=== PATIENT | female | born 1970 | race Caucasian/White ===

== ENCOUNTER 2020-01-30 00:33 | Outpatient (CLI) | payer OTHER, SELFPAY ==
[2020-01-30 18:59] LABS: SARS-CoV-2 RNA PCR Negative
== END 2020-01-30 00:34 | disposition home or self-care (01) ==
LOC: ANHCOVIDDT 00:33
PROVIDERS: PCP Family Medicine; Visit Provider Internal Medicine Gastroenterology
DX: Z01.812 Encounter for preprocedural laboratory examination (principal); Z20.828 Contact with and (suspected) exposure to other viral communicable diseases
CPT/HCPCS: 87635; C9803; U0003

== ENCOUNTER 2020-02-02 01:26 | Day surgery (SDC) | payer OTHER, SELFPAY ==
[2020-01-26 14:56] VITALS: BMI 25.0
[2020-02-02 09:26] VITALS: BP 198/105; PULSE 92; RESP 20; TEMP 37.6; O2SAT 100; BMI 25.3
[2020-02-02] MEDS: LACTATED RINGERS 1,000 ML 150 ML IV CONT (09:51)
--- NOTE | 2020-02-02 10:12 | WPDANESEPPF ---
Anes - Initial Pre Proc Eval Procedure: Operation Date: 02/02/20 10:30 Proposed Procedures p Esophagogastroduodenoscopy&Screening Colon - Cosme Balderrama MD Date/Time: 02/02/20 10:12 Surgeon: Cosme Balderrama MD Pre Op Diagnosis: Neoplasm Screening, Epigastric Pain Patient Data Age: 49 Gender: F Height: 5 ft Weight: 58.8 kg Last Vital Signs Temp 99.6 F 02/02/20 09:26 Pulse 92 02/02/20 09:26 Resp 20 02/02/20 09:26 BP 198/105 H 02/02/20 09:26 Pulse Ox 100 02/02/20 09:26 Allergies Allergy/AdvReac Type Severity Reaction Status Date / Time Penicillins Allergy Intermediate HIVES Verified 02/02/20 09:18 Home Medications Medication Instructions Recorded Confirmed Type bupropion HCl 150 mg PO DAILY 02/17/19 02/02/20 History cetirizine [Zyrtec] 10 mg PO PRN 02/17/19 02/02/20 History citalopram 40 mg PO DAILY 02/17/19 02/02/20 History famotidine [Pepcid] 20 mg PO DAILY 02/17/19 02/02/20 History metoprolol succinate 50 mg PO DAILY 02/17/19 02/02/20 History norethin-e.estradiol triphasic 1 tablet PO DAILY 02/17/19 02/02/20 History [Ortho-[facility] (28)] Patient hx anesthesia problems: none Family hx anesthesia problems: none PMFSH Past Medical History Medical History (Updated 01/04/20 @ 15:08 by Cosme Balderrama MD) Anxiety Colon cancer screening Depression Epigastric pain GERD (gastroesophageal reflux disease) Hypertension Surgical History Surgical History (Updated 01/04/20 @ 15:08 by Cosme Balderrama MD) H/O laparoscopy Hernia of abdominal wall as infant History of sleeve gastrectomy Social History Social History Smoking status: Never smoker Living arrangements: with family Gender identity (if verbalized by the patient): Female Spiritual care concerns: No Anes - Eval Final PreProcedure Day of Procedure 02/02/20 10:12 Patient weight: normal Heart: regular rate and rhythm Lungs: clear to auscultation Airway: Mallampati scale class II Neurological: alert and oriented Last oral intake: >/= 8 hours ASA classification: II Emergent: no Anesthetic plan: proceed Anesthesia type and monitoring: general GIVS and standard monitoring Informed Consent: The patient's anesthetic plan and its attendant risks and benefits were discussed with the patient/family/POA. Questions were solicited and answers provided to the satisfaction of the patient/family/POA.
--- NOTE | 2020-02-02 10:12 | WPDHPUPDATE1 ---
History and Physical Update Update Date/Time: 02/02/20 10:12 History and Physical has been reviewed, including an updated exam of the patient. There are NO changes in the patient's condition. Risks, benefits, and alternatives have been discussed and questions answered. Patient agrees to proceed with procedure.
[2020-02-02 10:55] VITALS: BP 109/67; PULSE 61; RESP 18; O2SAT 100
[2020-02-02 11:05] VITALS: BP 115/68; PULSE 70; RESP 16; O2SAT 100
[2020-02-02 11:15] VITALS: BP 150/91; PULSE 75; RESP 16; O2SAT 100
== END 2020-02-02 11:21 | disposition home or self-care (01) ==
PROVIDERS: PCP Family Medicine; Visit Provider Internal Medicine Gastroenterology
PROC: 0DJ08ZZ Inspection of Upper Intestinal Tract, Via Natural or Artificial Opening Endoscopic (ICD-10-PCS; CPT 43235; principal; 2020-02-02 10:30)
DX: Z12.11 Encounter for screening for malignant neoplasm of colon (principal); K63.5 Polyp of colon; K64.8 Other hemorrhoids; K29.50 Unspecified chronic gastritis without bleeding; K21.00 Gastro-esophageal reflux disease with esophagitis, without bleeding; K44.9 Diaphragmatic hernia without obstruction or gangrene; I10 Essential (primary) hypertension; F41.8 Other specified anxiety disorders
CPT/HCPCS: 45380; 43239; 88305; 88312; J2704; J7120

== ENCOUNTER 2020-02-11 08:20 | Outpatient (CLI) | payer OTHER, SELFPAY ==
[2020-02-11 09:01] LABS: Basophils Absolute Auto 0.1 K/mm3 (0.0-0.1); Basophils Percent Auto 0.7 % (0.2-1.2); Eosinophils Absolute Auto 0.1 K/mm3 (0-0.3); Eosinophils Percent Auto 1.9 % (0-4.4); Hemoglobin 13.7 g/dL (12.0-15.0); Immature Granulocyte Absolute 0.01 K/mm3 (0.00-0.031); Immature Granulocyte Percent A 0.1 % (0-0.5); Lymphocytes Absolute Auto 1.94 K/mm3 (0.9-3.2); Mean Corpuscular HGB Conc 33.4 g/dl (32-36); Mean Corpuscular Volume 89.9 fl (80-100); Mean Platelet Volume 9.7 fl (7.4-10.4); Monocytes Absolute Auto 0.3 K/mm3 (0.1-0.6); Monocytes Percent Auto 4.2 % (2.6-8.5); Neutrophils Absolute Auto 4.5 K/mm3 (1.3-6.7); Neutrophils Percent Auto 65.1 % (45.5-73.1); Platelet Count Result 324 k/mm3 (150-375); Red Blood Count 4.56 M/mm3 (4.2-5.4); Red Cell Distribution Width 12.2 % (11.5-14.5); White Blood Count 6.9 K/mm3 (4.5-10.0)
[2020-02-11 11:46] LABS: Alanine Aminotransferase 12 U/L (4-35); Albumin Level 3.8 g/dL (3.5-5.1); Alkaline Phosphatase 56 U/L (38-126); Anion Gap 5 mmol/L (8-16); Aspartate Amino Transferase 20 U/L (14-36); Bilirubin,Total 0.6 mg/dL (0.2-1.3); Blood Urea Nitrogen 15 mg/dL (7-17); Calcium 9.6 mg/dL (8.4-10.2); Carbon Dioxide 31 mmol/L (22-30); Chloride 104 mmol/L (98-107); Estimated Glomerular Filt Rate > 60; Glucose 78 mg/dL (65-105); Potassium 4.1 mmol/L (3.4-5.0); Sodium 140 mmol/L (137-145)
[2020-02-11 12:35] LABS: Vitamin B12 > 1000.0 pg/mL (239-931)
== END 2020-02-11 08:21 | disposition home or self-care (01) ==
PROVIDERS: PCP Family Medicine; Visit Provider Internal Medicine Hematology & Oncology
DX: I10 Essential (primary) hypertension (principal); Z98.84 Bariatric surgery status
CPT/HCPCS: 36415; 80053; 82607; 84443; 85025

== ENCOUNTER 2020-05-17 15:16 | Outpatient (CLI) | payer OTHER, SELFPAY ==
[2020-05-17 15:47] LABS: Hematocrit 41.7 % (37.0-47.0); Hemoglobin 13.6 g/dL (12.0-15.0); Mean Corpuscular HGB Conc 32.6 g/dl (32-36); Mean Corpuscular Volume 92.1 fl (80-100); Platelet Count Result 299 k/mm3 (150-375); Red Blood Count 4.53 M/mm3 (4.2-5.4); Red Cell Distribution Width 12.5 % (11.5-14.5); White Blood Count 8.2 K/mm3 (4.5-10.0)
[2020-05-17 16:56] LABS: Free T4 Free Thyroxine 0.88 ng/mL (0.78-2.19); Vitamin D 25 Hydroxy 26.6 ng/mL
== END 2020-05-17 15:17 | disposition home or self-care (01) ==
LOC: ANHLAB 15:18
PROVIDERS: Family Provider Family Medicine; PCP Family Medicine; Visit Provider Nurse Practitioner
DX: E55.9 Vitamin D deficiency, unspecified (principal); R53.83 Other fatigue
CPT/HCPCS: 36415; 82306; 82607; 84439; 84443; 85027

== ENCOUNTER 2020-12-15 14:36 | Outpatient (CLI) | payer OTHER, SELFPAY ==
[2020-12-15 23:38] LABS: Vitamin D 25 Hydroxy 39.9 ng/mL
== END 2020-12-15 14:37 | disposition home or self-care (01) ==
PROVIDERS: PCP Family Medicine; Visit Provider Internal Medicine Hematology & Oncology
DX: E55.9 Vitamin D deficiency, unspecified (principal)
CPT/HCPCS: 36415; 82306; 82607

== ENCOUNTER 2021-01-18 16:40 | Outpatient (CLI) | payer OTHER, SELFPAY ==
--- NOTE | ~2021-01-18 | MM_ITS ---
EXAMINATION: MM screening elaina BI w jagruti HISTORY: Screening TECHNIQUE: Craniocaudal and mediolateral oblique 3-D tomosynthesis images were obtained and synthetic 2-D images were generated. CAD analysis was submitted and interpreted. COMPARISON: Comparison to multiple prior studies sequentially, with oldest reviewed study dated 11/04. BREAST PARENCHYMAL COMPOSITION: The breasts are heterogenously dense, which may obscure small masses FINDINGS: There is no evidence of suspicious mass, calcification, or architectural distortion to sugg est malignancy in either breast. There has been no suspicious interval change. IMPRESSION: 1. No mammographic evidence of malignancy. 2. Recommend routine screening mammography in one year. BI-RADS Category 1: Negative Reviewed, dictated and finalized at location A.
== END 2021-01-18 16:41 | disposition home or self-care (01) ==
LOC: ANHIMG 16:41
PROVIDERS: PCP Family Medicine; Visit Provider Obstetrics & Gynecology Gynecology
DX: Z12.31 Encounter for screening mammogram for malignant neoplasm of breast (principal)
CPT/HCPCS: 77063; 77067

== ENCOUNTER 2021-02-02 10:47 | Outpatient (CLI) | payer OTHER, SELFPAY | END 2021-02-02 10:48 | disposition home or self-care (01) | LOC: ANHLAB 10:51 | PROVIDERS: PCP Family Medicine; Visit Provider Obstetrics & Gynecology Gynecology | DX: E53.8 Deficiency of other specified B group vitamins (principal) | CPT/HCPCS: 36415; 82607 ==

== ENCOUNTER 2021-04-06 13:23 | Outpatient (CLI) | payer OTHER, SELFPAY | END 2021-04-06 13:24 | disposition home or self-care (01) | PROVIDERS: PCP Family Medicine; Visit Provider Nurse Practitioner | DX: E53.8 Deficiency of other specified B group vitamins (principal) | CPT/HCPCS: 36415; 82607 ==

== ENCOUNTER 2021-06-27 14:40 | Outpatient (CLI) | payer OTHER, SELFPAY | END 2021-06-27 14:41 | disposition home or self-care (01) | LOC: ANHLAB 14:42 | PROVIDERS: Obstetrics & Gynecology Gynecology; PCP Family Medicine; Visit Provider Internal Medicine Hematology & Oncology | DX: E53.8 Deficiency of other specified B group vitamins (principal) | CPT/HCPCS: 36415; 82607 ==

== ENCOUNTER 2021-08-23 13:33 | Outpatient (CLI) | payer OTHER, SELFPAY | END 2021-08-23 13:34 | disposition home or self-care (01) | LOC: ANHLAB 13:35 | PROVIDERS: PCP Family Medicine | DX: E53.8 Deficiency of other specified B group vitamins (principal) | CPT/HCPCS: 36415; 82607 ==

== ENCOUNTER 2021-10-02 15:51 | Emergency (ER) | payer OTHER, SELFPAY ==
--- NOTE | ~2021-10-02 | XR_ITS ---
EXAMINATION: XR hand LT min 3V DATE: 10/02/2021 16:08 INDICATION: Left hand injury. TECHNIQUE: 3 views of left hand were obtained. COMPARISON: None. FINDINGS: Bone alignment is normal. No fracture. There is mild osteoarthritis of first carpometacarpa l joint, second metacarpophalangeal joint, and second distal interphalangeal joint. IMPRESSION: 1. Mild polyarticular osteoarthritis. Reviewed, dictated and finalized at location B.
--- NOTE | 2021-10-02 15:53 | ED.UPPEXIN ---
HPI - Extremity Injury (Upper) General Stated Complaint: lt hand injury Time Seen by Provider: 10/02/21 15:53 Source: patient Mode of arrival: ambulatory Limitations: no limitations History of Present Illness HPI narrative: Ms. Moses is a 51-year-old female patient presenting to the clinic today with complaints of left hand injury/pain. She reports she twisted her hand on Saturday night when trying to carry a 50 pound bag of dog food, she states, that the dog bag slipped and she went to grab it and caught it with 2 fingers and this twisted her hand and she heard a pop. She notes quite a bit of pain in the left index finger/knuckle and states that her fingertip is numb. Related Data Home Medications Medication Instructions Recorded Confirmed bupropion HCl 150 mg tablet,12 hr 150 mg PO DAILY 02/17/19 02/02/20 sustained-release metoprolol succinate 50 mg capsule 50 mg PO DAILY 02/17/19 02/02/20 sprinkle, ext. release 24 hr citalopram 40 mg tablet 40 mg PO DAILY 10/02/21 10/02/21 norethindrone-e.estradiol 1 tablet PO DAILY 10/02/21 10/02/21 triphasic 0.5 mg/0.75 mg/1 mg-35 mcg tablet (Nortrel (28)) Allergies Allergy/AdvReac Type Severity Reaction Status Date / Time Penicillins AdvReac Intermediate HIVES Verified 10/02/21 16:09 Review of Systems Review of Systems: Pertinent positives per HPI. Patient denies any fever, chills, rash, headache, visual changes, dizziness, cough, runny nose, sore throat, shortness of breath, chest pain, palpitations, nausea, vomiting, diarrhea, constipation, abdominal pain, or any urinary issues. [facility] Past Medical History Medical History Anxiety Colon cancer screening Depression Epigastric pain GERD (gastroesophageal reflux disease) Hypertension Surgical History Surgical History H/O laparoscopy Hernia of abdominal wall as History of sleeve gastrectomy Social History Social History Smoking status: Never smoker Gender identity (if verbalized by the patient): Female Spiritual care concerns: No Comments At the time of my signature, I reviewed and agree with the nursing past medical, surgical, social, and family history. There is no relevant family history pertinent to the patient complaint. Exam Narrative: General: Well-developed, well nourished, in no apparent distress Head: Normocephalic, atraumatic. Cardio: Regular rate and rhythm, s1 and s2 normal, no murmur appreciated. Resp: Clear to auscultation bilaterally, no rhonchi, rales, wheezing or rubs. Musculoskeletal: No deformity, tender to palpation over the left second knuckle, numbness to the tip of the left index finger, grossly normal range of motion, muscle strength strong and equal, peripheral pulse strong, no edema, no cyanosis, normal gait and station Course Course Emergency Course: Portions of this record may have been created with voice recognition software. Level of Care: Express Care Visit Vital Signs Vital signs: Vital signs reviewed MDM - Extremity Injury (Upper) MDM Narrative Medical decision making narrative: At the time of visit patient was resting comfortably on the exam table. X-ray negative for fracture or malalignment of the left hand. I suspect the patient has a left index finger sprain. Supportive measures were discussed with the patient she voiced understanding of discharge instructions. I also discussed the patient's high blood pressure in the clinic-she states that her blood pressure is very high all the time and that she is under medical care for this. Differential Diagnosis Differential diagnosis: Likely finger sprain, dislocation of finger and other (Finger fracture) Discharge Plan Discharge Clinical Impression: Sprain of finger Qualifiers: Encounter type: initial encou
[2021-10-02 16:00] VITALS: PULSE 69; RESP 18; TEMP 36.9; O2SAT 100
[2021-10-02 16:10] VITALS: BP 178/104
== END 2021-10-02 16:21 | disposition home or self-care (01) ==
PROVIDERS: Emergency Provider Nurse Practitioner Family; PCP Family Medicine
DX: S63.651A Sprain of metacarpophalangeal joint of left index finger, initial encounter (principal); X50.9XXA Other and unspecified overexertion or strenuous movements or postures, initial encounter; K21.9 Gastro-esophageal reflux disease without esophagitis; I10 Essential (primary) hypertension; F41.9 Anxiety disorder, unspecified; F32.A Depression, unspecified
CPT/HCPCS: 73130; 99213; G0463

== ENCOUNTER 2021-10-20 14:43 | Outpatient (CLI) | payer OTHER, SELFPAY ==
[2021-10-20 16:57] LABS: Vitamin D 25 Hydroxy 45.7 ng/mL
== END 2021-10-20 14:44 | disposition home or self-care (01) ==
PROVIDERS: Obstetrics & Gynecology Gynecology; PCP Family Medicine; Visit Provider Internal Medicine Hematology & Oncology
DX: E53.8 Deficiency of other specified B group vitamins (principal); E55.9 Vitamin D deficiency, unspecified
CPT/HCPCS: 36415; 82306; 82607

== ENCOUNTER 2021-12-29 15:01 | Outpatient (CLI) | payer OTHER, SELFPAY | END 2021-12-29 15:02 | disposition home or self-care (01) | LOC: ANHLAB 15:03 | PROVIDERS: PCP Family Medicine; Visit Provider Obstetrics & Gynecology Gynecology | DX: E53.8 Deficiency of other specified B group vitamins (principal) | CPT/HCPCS: 36415; 82607 ==

== ENCOUNTER 2023-12-09 01:34 | Day surgery (SDC) | payer OTHER, SELFPAY ==
[2023-12-05 14:12] VITALS: BMI 21.5
--- NOTE | 2023-12-05 14:41 | PC.NURSE ---
Report to the Outpatient Waiting Room, entrance under the green pavilion located off [facility], at time _1300___ on date _12/09/23 . Planned Procedure Time: __1500 . Time changes happen often and if your time is changed the preop area will call you the afternoon before. - You and your visitor will be asked to self-screen and do not enter if you have any COVID symptoms. - A mask is optional within the hospital at this time. Patients may have clear liquids (water, carbonated beverages, clear teas, apple juice) until 3 hours prior to surgery with a maximum of 20 ounces. - No food from midnight until time of surgery Take the following medications with a SIP of water the morning of surgery: __BUPOPRION, METOPROLOL, CITALOPRAM DO NOT STOP ANY OF YOUR OTHER PRESCRIPTION MEDICATIONS PRIOR TO SURGERY ?EXCEPT THE FOLLOWING Medications to discontinue per physician NONE Date to take last dose___NONE Please no make-up, nail kazakh, hairspray, perfume, deodorant, or body powder the day of surgery. No jewelry (including any body piercings) or valuables the day of surgery, leave them at home. Please take a shower or bath the night before, or the morning of, surgery with an antibacterial soap. Wear comfortable, loose fitting clothing. Children are encouraged to wear pajamas. - Jewelry must be removed prior to entering the operating room. Rings and piercings that are not removed may be cut off. - The hospital will not accept responsibility for valuables. - Please leave all valuables, including medications, at home the day of surgery. If you are going home after surgery, a licensed class b truck driver must drive you home. - NO public transportation without another adult if you receive anesthesia. - We recommend that an adult stay with you for 24 hours following discharge. - We also recommend that you do not drive, make important decision, drink alcoholic beverages, or take any drugs that were not prescribed by your health care provider for at least 24 hours after your discharge time. Follow any additional instructions given to you from your surgeon. If you or anyone in your household have experienced Covid symptoms in the past week, please notify your surgeon or the nurse liaison at the phone number below for possible testing. Telephone instructions given to __SEVEN and asked if any additional questions and then verbalized understanding. Patient advised to call surgeon office or pre surgery nurse liaison [phone] if any additional questions.
--- NOTE | 2023-12-09 09:02 | P.HP_ITS ---
History of Present Illness History of Present Illness Consent: Risks, benefits, and alternatives have been discussed and questions answered. Patient agrees to proceed with procedure. Chief complaint: post menopausal bleeding Narrative: Kita Reese is a 53 year old female with bleeding every 2 weeks for 2 months. Pelvic ultrasound is normal but due to persistent bleeding the plan is for D&C hysteroscopy. Risks of infection, bleeding, perforation, and possible pathology are discussed. Review of Systems Review of Systems: not repeated day of surgery; patient states no changes in status [facility] Past Medical History Medical History (Updated 12/09/23 @ 09:06 by Alina Valencia MD) Anxiety Depression Epigastric pain GERD (gastroesophageal reflux disease) Hypertension (normal spontaneous vaginal delivery) x2 Surgical History Surgical History (Updated 12/09/23 @ 09:05 by Alina Valencia MD) H/O laparoscopy Hernia of abdominal wall as infant History of hysteroscopy 2019 History of sleeve gastrectomy Social History Social History Smoking status: Never smoker Alcohol intake: current Substance use: never Substance use type: does not use Living arrangements: with family Gender identity (if verbalized by the patient): Female Spiritual care concerns: No Meds Home Medications and Allergies Home Medications Medication Instructions Recorded Confirmed Type bupropion HCl 150 mg tablet,12 hr 150 mg PO DAILY 02/17/19 12/05/23 History sustained-release metoprolol succinate 50 mg capsule 50 mg PO DAILY 02/17/19 12/05/23 History sprinkle, ext. release 24 hr citalopram 40 mg tablet 40 mg PO DAILY 10/02/21 12/05/23 History norethindrone-e.estradiol 1 tablet PO DAILY 10/02/21 12/05/23 History triphasic 0.5 mg/0.75 mg/1 mg-35 mcg tablet (Nortrel (28)) olmesartan 20 mg tablet 40 mg PO BID 12/05/23 12/05/23 History omeprazole 20 mg capsule,delayed 20 mg PO DAILY 12/05/23 12/05/23 History release Allergies Allergy/AdvReac Type Severity Reaction Status Date / Time Penicillins AdvReac Intermediate HIVES Verified 10/02/21 16:09 Exam Const: General: healthy appearing and alert Orientation/consciousness: patient oriented x3 Resp: Effort & Inspection: normal respiratory effort GI: GI Palp: Yes Soft to palpation, No Tenderness to palpation present (GI) and No Palpable mass present : External Female Exam: normal external appearance Speculum Exam - Vagina: normal appearance of the vagina and normal vaginal discharge Speculum Exam - Cervix: normal appearance of the cervix Bimanual exam- vagina & uterus: uterine size normal and consistency normal Bimanual Exam- Adnexa, other: normal adnexae and No adnexal tenderness Neuro: General: patient oriented x3 Assessment and Plan Assessment and plan (1) Post-menopausal bleeding: Code(s): N95.0 - Postmenopausal bleeding Status: Acute Assessment and Plan: plan to proceed with D&C hysteroscopy
--- NOTE | 2023-12-09 09:02 | WPDHPUPDATE1 ---
History and Physical Update Update Date/Time: 12/09/23 09:02 History and Physical has been reviewed, including an updated exam of the patient. There are NO changes in the patient's condition. Risks, benefits, and alternatives have been discussed and questions answered. Patient agrees to proceed with procedure.
[2023-12-09] MEDS: ACETAMINOPHEN 500 MG TABLET 1000 MG PO (12:55)
--- NOTE | 2023-12-09 12:57 | WPDANESEPPF ---
Anes - Initial Pre Proc Eval Procedure: Operation Date: 12/09/23 15:00 Proposed Procedures p Hysteroscopy, Dilation and Curettage - Alina Valencia MD Date/Time: 12/09/23 12:57 Surgeon: Alina Valencia MD Pre Op Diagnosis: post menopausal bleeding Patient Data Age: 53 Gender: F Height: 1.52 m Weight: 50 kg Allergies Allergy/AdvReac Type Severity Reaction Status Date / Time Penicillins Allergy Intermediate HIVES Verified 12/09/23 12:55 shellfish derived Allergy Intermediate Hives Verified 12/09/23 12:55 Home Medications Medication Instructions Recorded Confirmed Type bupropion HCl 150 mg tablet,12 hr 150 mg PO DAILY 02/17/19 12/05/23 History sustained-release metoprolol succinate 50 mg capsule 50 mg PO DAILY 02/17/19 12/05/23 History sprinkle, ext. release 24 hr citalopram 40 mg tablet 40 mg PO DAILY 10/02/21 12/05/23 History norethindrone-e.estradiol 1 tablet PO DAILY 10/02/21 12/05/23 History triphasic 0.5 mg/0.75 mg/1 mg-35 mcg tablet (Nortrel (28)) olmesartan 20 mg tablet 40 mg PO BID 12/05/23 12/05/23 History omeprazole 20 mg capsule,delayed 20 mg PO DAILY 12/05/23 12/05/23 History release Patient hx anesthesia problems: none Family hx anesthesia problems: none Results Review: All pre-operative results and documents have been reviewed as part of the pre-operative evaluation. COUNT INCLUDES THE [facility] Past Medical History Medical History (Updated 12/09/23 @ 09:06 by Alina Valencia MD) Anxiety Depression Epigastric pain GERD (gastroesophageal reflux disease) Hypertension (normal spontaneous vaginal delivery) x2 Surgical History Surgical History (Updated 12/09/23 @ 09:05 by Alina Valencia MD) H/O laparoscopy Hernia of abdominal wall as History of hysteroscopy 2019 History of sleeve gastrectomy Social History Social History Smoking status: Never smoker Alcohol intake: current Substance use: never Substance use type: does not use Living arrangements: with family Gender identity (if verbalized by the patient): Female Spiritual care concerns: No Anes - Eval Final PreProcedure Day of Procedure 12/09/23 12:57 Patient weight: normal Heart: regular rate and rhythm Lungs: clear to auscultation and normal air movement Airway: Mallampati scale class II Neurological: alert and oriented Last oral intake: >/= 8 hours ASA classification: II Emergent: no Anesthetic plan: proceed Anesthesia type and monitoring: general GIVS and standard monitoring Results Review: All pre-operative results and documents have been reviewed as part of the pre-operative evaluation. Informed Consent: The patient's anesthetic plan and its attendant risks and benefits were discussed with the patient/family/POA. Questions were solicited and answers provided to the satisfaction of the patient/family/POA.
[2023-12-09 13:00] VITALS: BP 170/95; PULSE 60; RESP 16; TEMP 36.6; O2SAT 100
[2023-12-09 13:01] VITALS: BMI 21.4
[2023-12-09] MEDS: LACTATED RINGERS 1,000 ML 30 ML IV CONT (13:03)
--- NOTE | 2023-12-09 14:53 | W.PM.PROC2 ---
Procedure Note - Detailed Date of Procedure 12/09/23 Pre-op Diagnosis post menopausal bleeding Post-op Diagnosis Same Procedure Performed D&C hysteroscopy Surgeon Alina Valencia MD Anesthesia MAC Findings internal cervix is stenotic uterus sounds to 8cm small polyp on the right sidewall thickened posterior wall Description of Procedure The patient is taken to the operating room and placed under anesthesia in the dorsal lithotomy position. She was prepped and draped in usual sterile fashion. [place] speculum was placed in the vagina and the cervix grasped on the anterior lip with a tenaculum. The uterus is sounded only to 3cm and internal cervical stenosis is encountered. The os Finders are used to open internal cervical os. The uterus then sounds to 8cm. The diagnostic hysteroscope is placed and with the above-stated findings the small Aveta resection device is placed. The small polyp on the right sidewall and the thickened posterior wall are removed under direct visualization. There remainder of the endometrium appears very atrophic. The hysteroscope was removed and the sharp OO curette is used to curette the endometrium until a good uterine cry was noted in all areas. There is a copious amount of mucus curetting. All instruments are removed and the patient awakened from anesthesia. Sponge, needle, and instrument counts are correct per the OR staff. Estimated Blood Loss 5 Drains No Packing No Pathology Yes ( Endometrial shavings and curettings) Complications No immediate complications Condition Stable Disposition PACU
[2023-12-09 14:55] VITALS: BP 101/64; PULSE 61; RESP 14; O2SAT 100
[2023-12-09 15:25] VITALS: BP 113/72; PULSE 57; RESP 16
[2023-12-09 15:55] VITALS: BP 159/97; PULSE 70; RESP 16
== END 2023-12-09 16:00 | disposition home or self-care (01) ==
PROVIDERS: PCP Family Medicine; Visit Provider Obstetrics & Gynecology Gynecology
PROC: 0U5B8ZZ Destruction of Endometrium, Via Natural or Artificial Opening Endoscopic (ICD-10-PCS; CPT 58563; principal; 2023-12-09 15:00)
DX: N84.0 Polyp of corpus uteri (principal); I10 Essential (primary) hypertension; F41.9 Anxiety disorder, unspecified; F32.A Depression, unspecified; K21.9 Gastro-esophageal reflux disease without esophagitis; Z98.890 Other specified postprocedural states; Z98.84 Bariatric surgery status
CPT/HCPCS: 58558; 88305; A9270; J2250; J3010; J7120